=== PATIENT | female | born 1945 | race Caucasian/White ===

== ENCOUNTER → 2019-04-24 | Outpatient (CLI) | payer OTHER | LOC: HYPER 07:08 | DX: T81.49XD Infection following a procedure, other surgical site, subsequent encounter (principal); L97.912 Non-pressure chronic ulcer of unspecified part of right lower leg with fat layer exposed; M19.90 Unspecified osteoarthritis, unspecified site; Y92.89 Other specified places as the place of occurrence of the external cause; Y83.8 Other surgical procedures as the cause of abnormal reaction of the patient, or of later complication, without mention of misadventure at the time of the procedure ==

== ENCOUNTER → 2019-04-29 | Outpatient (CLI) | payer OTHER | LOC: HYPER 07:04 | DX: T81.49XD Infection following a procedure, other surgical site, subsequent encounter (principal); L97.812 Non-pressure chronic ulcer of other part of right lower leg with fat layer exposed; E07.89 Other specified disorders of thyroid; R60.0 Localized edema; M19.90 Unspecified osteoarthritis, unspecified site; Y83.8 Other surgical procedures as the cause of abnormal reaction of the patient, or of later complication, without mention of misadventure at the time of the procedure ==

== ENCOUNTER → 2019-05-15 | Outpatient (CLI) | payer OTHER | LOC: HYPER 06:46 | DX: T81.49XD Infection following a procedure, other surgical site, subsequent encounter (principal); L97.812 Non-pressure chronic ulcer of other part of right lower leg with fat layer exposed; M19.90 Unspecified osteoarthritis, unspecified site; R60.0 Localized edema; Y83.8 Other surgical procedures as the cause of abnormal reaction of the patient, or of later complication, without mention of misadventure at the time of the procedure ==

== ENCOUNTER → 2019-06-01 | Outpatient (CLI) | payer OTHER | LOC: HYPER 06:50 | DX: T81.49XD Infection following a procedure, other surgical site, subsequent encounter (principal); L97.812 Non-pressure chronic ulcer of other part of right lower leg with fat layer exposed; M19.90 Unspecified osteoarthritis, unspecified site; R60.0 Localized edema; Y83.8 Other surgical procedures as the cause of abnormal reaction of the patient, or of later complication, without mention of misadventure at the time of the procedure ==

== ENCOUNTER → 2019-06-17 | Outpatient (CLI) | payer OTHER | LOC: HYPER 02:19 | DX: T81.49XD Infection following a procedure, other surgical site, subsequent encounter (principal); L97.812 Non-pressure chronic ulcer of other part of right lower leg with fat layer exposed; M19.90 Unspecified osteoarthritis, unspecified site; R60.0 Localized edema; Y83.8 Other surgical procedures as the cause of abnormal reaction of the patient, or of later complication, without mention of misadventure at the time of the procedure ==

== ENCOUNTER → 2019-07-15 | Outpatient (CLI) | payer OTHER | LOC: HYPER 07:58 | DX: T81.49XD Infection following a procedure, other surgical site, subsequent encounter (principal); L97.812 Non-pressure chronic ulcer of other part of right lower leg with fat layer exposed; M19.90 Unspecified osteoarthritis, unspecified site; R60.0 Localized edema; Y83.8 Other surgical procedures as the cause of abnormal reaction of the patient, or of later complication, without mention of misadventure at the time of the procedure ==

== ENCOUNTER → 2019-08-06 | Outpatient (CLI) | payer OTHER | LOC: HYPER 08:44 | DX: T81.49XD Infection following a procedure, other surgical site, subsequent encounter (principal); L97.812 Non-pressure chronic ulcer of other part of right lower leg with fat layer exposed; R60.0 Localized edema; E07.89 Other specified disorders of thyroid; M19.90 Unspecified osteoarthritis, unspecified site; Y83.8 Other surgical procedures as the cause of abnormal reaction of the patient, or of later complication, without mention of misadventure at the time of the procedure ==

== ENCOUNTER → 2019-08-19 | Outpatient (CLI) | payer OTHER | LOC: HYPER 07:58 | DX: T81.49XD Infection following a procedure, other surgical site, subsequent encounter (principal); L97.812 Non-pressure chronic ulcer of other part of right lower leg with fat layer exposed; M19.90 Unspecified osteoarthritis, unspecified site; R60.0 Localized edema; Y83.8 Other surgical procedures as the cause of abnormal reaction of the patient, or of later complication, without mention of misadventure at the time of the procedure ==

== ENCOUNTER → 2019-09-15 | Outpatient (CLI) | payer OTHER | LOC: HYPER 11:22 | DX: T81.49XD Infection following a procedure, other surgical site, subsequent encounter (principal); L97.812 Non-pressure chronic ulcer of other part of right lower leg with fat layer exposed; L84 Corns and callosities; E07.89 Other specified disorders of thyroid; R60.0 Localized edema; M19.90 Unspecified osteoarthritis, unspecified site; Y83.8 Other surgical procedures as the cause of abnormal reaction of the patient, or of later complication, without mention of misadventure at the time of the procedure ==